=== PATIENT | male | born 1970 | race Caucasian/White ===

== ENCOUNTER → 2019-04-23 | Outpatient (CLI) | payer BC ==
--- NOTE | 2019-04-23 11:51 | ECHOF ---
Referral Reason:I10 hypertension MEASUREMENTS -------- HEIGHT: 182.9 cm WEIGHT: 96.2 kg BP: RVIDd: 3.5 cm (< 3.3) IVSd: 1.9 cm (0.6 - 1.1) LVIDd: 4.5 cm (3.9 - 5.3) LVPWd: 1.6 cm (0.6 - 1.1) IVSs: 2.0 cm LVIDs: 3.2 cm LVPWs: 2.0 cm LAESV Index (A-L): 23.62 ml/m Ao Diam: 3.8 cm (2.0 - 3.7) AV Cusp: 2.0 cm (1.5 - 2.6) LA Diam: 2.8 cm (2.7 - 3.8) MV EXCURSION: 11.532 mm (> 18.000) MV EF SLOPE: 60 mm/s (70 - 150) EPSS: 1.1 cm MV E Andi: 0.55 m/s MV DecT: 191 ms MV A Andi: 0.69 m/s MV E/A Ratio: 0.80 RAP: 5.00 mmHg RVSP: 24.73 mmHg FINDINGS -------- Sinus rhythm. This was a technically good study. The left ventricular size is normal. There is moderate concentric left ventricular hypertrophy. T here is normal global left ventricular contractility. Overall left ventricular systolic function is normal with, an EF between 55 - 60 %. The diastolic filling pattern is normal for the age of the p atient 9.04. The right ventricle is mildly enlarged. Normal LA size by volume 22+/-6 ml/m2. The right atrial size is normal. Interatrial and interventricular septum intact. The aortic valve is trileaflet and appears structurally normal. There is no evidence of aortic regu rgitation. There is no evidence of aortic stenosis. No mitral regurgitation. Mild tricuspid regurgitation present. There is no evidence of pulmonary hypertension. The right v entricular systolic pressure, as measured by Doppler, is 24.73mmHg. There is no pulmonic regurgitation present. The aortic root size is normal. Normal inferior vena cava with normal inspiratory collapse consistent with estimated right atrial pre ssure of 5 mmHg. There is no pericardial effusion. CONCLUSIONS -------- 1. Sinus rhythm. 2. This was a technically good study. 3. The left ventricular size is normal. 4. There is moderate concentric left ventricular hypertrophy. 5. There is normal global left ventricular contractility. 6. Overall left ventricular systolic function is normal with, an EF between 55 - 60 %. 7. The diastolic filling pattern is normal for the age of the patient 9.04 8. The right ventricle is mildly enlarged. 9. Normal LA size by volume 22+/-6 ml/m2. 10. The right atrial size is normal. 11. Interatrial and interventricular septum intact. 12. The aortic valve is trileaflet and appears structurally normal. 13. There is no evidence of aortic regurgitation. 14. There is no evidence of aortic stenosis. 15. No mitral regurgitation. 16. Mild tricuspid regurgitation present. 17. There is no evidence of pulmonary hypertension. 18. The right ventricular systolic pressure, as measured by Doppler, is 24.73mmHg. 19. There is no pulmonic regurgitation present. 20. The aortic root size is normal. 21. Normal inferior vena cava with normal inspiratory collapse consistent with estimated right atrial pressure of 5 mmHg. 22. There is no pericardial effusion. DIAL MOUNTER: Sherita Canas RDCS
--- NOTE | 2019-04-23 12:27 | EST ---
EXERCISE STRESS DATE OF SERVICE: 04/23/2019 AGE: 48 SEX: Male HT: 72 WT: 212 PROTOCOL: Yury STAGE: III DURATION OF EXERCISE: 8 minutes 15 seconds HEART RATE REST: 77 BLOOD PRESSURE REST: 130/88 MAXIMUM HEART RATE ACHIEVED: 148 MAXIMUM BLOOD PRESSURE: 201/69 85% MPHR: 147 100% MPHR: 173 METS: 9.7 INDICATIONS: Hypertension. CLINICAL INFORMATION: Baseline EKG revealed normal sinus rhythm without significant ST-T changes. Patient walked for 8 minutes 15 seconds achieved a maximal heart rate of 148 beats per minute which is more than 85% of predicted maximum. Developed fatigue and shortness of breath but did not have any angina or arrhythmia. EKG did not reveal any ST-segment changes to indicate ischemia. By EKG criteria, this is a negative stress test with fair exercise capacity. Patient did not have any angina or arrhythmia and there were no EKG changes to indicate ischemia. MMODL / IJN: [id number] /
== END | disposition home or self-care (01) ==
LOC: RADNMMAIN 08:40
PROVIDERS: ATTEND Internal Medicine
DX: I07.1 Rheumatic tricuspid insufficiency (principal); I10 Essential (primary) hypertension
CPT/HCPCS: 93017; 93306

== ENCOUNTER → 2022-03-06 | Outpatient (CLI) | payer BC ==
--- NOTE | 2022-03-06 12:30 | CA ---
Exercise Stress Test Report Name: Steven Apodaca Exam Date: 03/06/2022 11:03 Exam Location: [place] Stress Ht (in): 73 Wt (lb): 203 BSA: 2.17 Ordering Phys: Holly Spence DO Referring Phys: Helen Hong [facility] Technologist: PAULINA,, Age: 51 Gender: M : 1970 Procedure CPT: Indications: R94.31 ABNORMAL EKG ICD-10 Codes: Patient History: Family history of heart disease Medications: Meds past 24 hrs: Pretest Chest Pain: STRESS TEST Yury Protocol Exercise Duration (min:sec): 10:[address] Depressions (mm): 0 Angina Score: 0 Delgadillo Score: 10.5 Resting HR (bpm): 70 Peak HR (bpm): 157 Resting BP (mmHg): 165 / 96 Peak BP (mmHg): 215 / 86 MPHR: 170 Target HR: 145 % MPHR: 92 METS: 12.1 Total Dose: Peak Dose: Atropine: Double Product: 43144 BP Response: Normal Resting Blood Pressure - Appropriate Stress Termination: Reached target heart rate Stress Symptoms: No chest pain or symptoms Stress Summary: The patient's target heart rate was achieved ECG ANALYSIS Resting ECG: Sinus rhythm. Normal conduction. No arrhythmias. Normal repolarization. Stress ECG: No ECG evidence of ischemia with exercise. CONCLUSIONS Patient falls into low-risk group (DTS >= +5). This associates the patient with an annual CV mortality <= 0.5%. Exercise capacity very good at >[address] segment response to stress. Normal electrocardiographic response to exercise with no evidence of stress induced ischemia Dr. Sahara Aguirre MD (Electronically Signed) Final Date: 06 March 2022 12:30
== END | disposition home or self-care (01) ==
LOC: RADNMMAIN 10:36
PROVIDERS: ATTEND Family Medicine
DX: R94.31 Abnormal electrocardiogram [ECG] [EKG] (principal)
CPT/HCPCS: 93017